=== PATIENT | male | born 1950 | race Caucasian/White ===

== ENCOUNTER 2016-07-06 13:08 | Inpatient (IN) ==
--- NOTE | 2016-07-06 13:23 | Emergency Department Note ---
Disposition Clinical Impression: Acute exacerbation of chronic obstructive airways disease Disposition: Home, Self-Care Condition: Fair Referrals: Chavez De Oliveira DO [Primary Care Provider] - Forms: ED Satisfaction Letter Time of Disposition: 15:39 (admit to [facility]?) SOB HPI - General Chief Complaint: ED Shortness of Breath/Dyspnea Stated Complaint: BETHANY Source: patient Mode of arrival: private vehicle Limitations: no limitations Nursing Notes Reviewed: Yes Vital Signs Reviewed: Yes - History of Present Illness Patient presents to the ED complaining of progressively worsening shortness of breath. States symptoms got particularly bad last night. Dyspnea is worse on exertion and he is only able to ambulate short distances at this time. He also complains of intermittent burning and pressure in his chest although he has no chest discomfort currently. Also complains of chest, back and abdominal discomfort with coughing episodes. He also complains of an intermittent "cold sensation" on the inside of his left chest. He has had a dry cough. Reports some slight leg swelling that is actually now improving after elevating his legs yesterday. He reports chills and a temperature of 100.1 yesterday. Denies any sick contacts or recent travel. He has a history of COPD and asthma as well as CHF and CAD with prior PA, CABG and stents. He states he has used 5 duo nebs since 7 AM this morning with last use 20 minutes prior to arrival. States these will help briefly but then symptoms worsen again. He is currently on 40 mg of prednisone daily, prescribed by [facility] on June 21. He also completed a Z-Daniele that was prescribed at that same visit. States he was supposed to have PFTs done today but he canceled the appointment due to not feeling well. He has home oxygen available that he is supposed to wear at 2.5 L as needed. States he has been wearing it for the past week with only minimal improvement. States his oxygen saturation was in the upper 80s at home this morning on room air. He used to smoke 2 packs per day for over 20 years but has only had 6 cigarettes since March. - Related Data Home Medications Medication Instructions Recorded Confirmed Budesonide/Formoterol 160/4.5 1 puff IH BIDR 12/07/14 03//16 [Symbicort] Ipratropium Neb [Atrovent Neb] 0.5 mg IH Q6HR PRN 12/07/14 05/23/15 Montelukast [Singulair] 10 mg PO HS 12/07/14 05/23/15 Atorvastatin Calcium [Lipitor] 80 mg PO DAILY 04/14/15 05/23/15 Previous Rx's Medication Instructions Recorded Albuterol Neb [Proventil Neb] 2.5 mg IH Q4HR #60 vial.neb 04/14/15 Albuterol Sulfate [Albuterol 2 puff IH Q4HR #1 hfa.aer.ad 04/14/15 Inhaler] PredniSONE 40 mg PO DAILY #10 tablet 06/22/15 PredniSONE 40 mg PO DAILY #10 tablet 07/18/15 PredniSONE 40 mg PO DAILY 5 Days 09/21/15 Levofloxacin [Levaquin] 500 mg PO DAILY #10 tablet 11/29/15 PredniSONE 20 mg PO DAILY #18 tablet 11/29/15 Allergies Allergy/AdvReac Type Severity Reaction Status Date / Time Peanuts Allergy Anaphylaxis Uncoded 04/14/15 16:46 Constitutional: Reports: fever, chills. Denies: weakness, weight change Eyes: Denies: eye pain, eye discharge, vision change ENT ED: Denies: ear pain, throat pain, dental pain, hearing loss, epistaxis, congestion, dysphagia Cardiovascular: Reports: as per HPI, chest pain, dyspnea on exertion, edema. Denies: palpitations, syncope Respiratory: Reports: as per HPI, cough, dyspnea, wheezes. Denies: hemoptysis, stridor, sputum production Gastrointestinal: Denies: abdominal pain, nausea, vomiting, diarrhea, constipation, hematemesis, melena, hematochezia Genitourinary: Denies: urgency, dysuria, frequency, hematuria Musculoskeletal: Denies: back pain, neck pain, arthralgia, myalgia Integumentary: Denies: rash, abrasion, lesions Neurological: Denies: headache, weakness, numbness, paresthesias, confusion, abnormal gait, vertigo Psychiatric: Denies: anxiety, depression, suicidal thoughts, homicidal thoughts , auditory hallucinations, visual hallucinations Endocrine: Denies: fatigue Hematological/Lymphatic: Denies: easy bleeding, easy bruising Allergic/Immunologic: Denies: facial swelling, urticaria Past Medical History - Past Medical History Medical history: Reports: arthritis, asthma, CHF, COPD, coronary artery disease , hyperlipidemia, hypertension, myocardial infarction Surgical history: Reports: angioplasty/stent, coronary bypass (CABG), herniorrhaphy ([facility]) Psychiatric history: Reports: no psych history, depression - Social History Smoking Status: Current some day smoker Smokeless Tobacco Status: No Alcohol use: Reports: occasionally Drug use: Reports: none Physical Exam - General Limitations: no limitations General appearance: alert, in no apparent distress - Head Head exam: atraumatic, normocephalic, normal inspection - Eye Eye exam: Present: normal appearance, PERRL, EOMI - ENT ENT exam: normal exam, normal oropharynx, mucous membranes moist - Neck Neck exam: Present: normal inspection, full ROM, trachea midline - Chest Chest inspection: Present: normal inspection, symmetric chest wall rise, tenderness (left side of chest wall) - Respiratory Respiratory exam: Present: normal lung sounds bilaterally, wheezes, accessory muscle use, prolonged expiratory phase. Absent: respiratory distress - Expanded Respiratory Exam Location: wheezes: Upper, Right, Left, rhonchi: Left, Right, Lower, decreased breath sounds: Lower, Upper, Right, Left - Cardiovascular Cardiovascular exam: Present: regular rate, normal rhythm, normal heart sounds - Abdominal Exam Abdominal exam: Present: soft, Non-Tender, normal bowel sounds. Absent: tenderness, distention, guarding, rebound, rigidity - Extremities Exam Extremities exam: Present: normal inspection, full ROM, pedal edema (trace bilaterally to lower calf). Absent: tenderness - Back Exam Back exam: Present: normal inspection, full ROM. Absent: tenderness - Neurological Exam Neurological exam: Present: alert, oriented X3 - Psychiatric Psychiatric exam: Present: normal affect, normal mood - Skin Skin exam: Present: warm, dry, intact, normal color Course Course Narrative: Reason presents to the ED with progressively worsening shortness of breath, wheezing and some mild lower extremity swelling with a history of advanced COPD , asthma and CHF. He has artery on steroids and recently completed antibiotics. Current presentation is concerning for persistent COPD exacerbation versus pneumonia or possible CHF exacerbation. Will provide oxygen , nebulizer treatments and IV steroids. Will obtain chest x-ray and lab work to evaluate further. I suspect patient will likely require admission for continued management. - Reevaluation(s) Reevaluation #1: X-ray shows no evidence of pneumonia. Laboratory studies show no leukocytosis. He is minimally elevated BNP. Troponin is slightly positive at 0.04 compared to a negative troponin last November. I suspect however this may simply represent a slight strain due to his severe COPD and current exacerbation versus a primary cardiac pathology. Repeat respiratory exam shows some improved aeration however there is still significant wheezing. He does warrant admission for continued management of his COPD exacerbation. Discussed all test results with the patient who expressed understanding and is in agreement with admission or transfer. Will contact the hospitalist on-call to discuss possible admission. Time: 15:36 Reevaluation #2: Still awaiting callback from hospitalist. Will collect a repeat troponin to establish a trend and help determine whether patient needs cardiology evaluation at this time. Time: 16:10 Reevaluation #3: I spoke to the hospitalist on-call, Dr. Hardy, who has accepted the patient given his repeat troponin is stable and not increasing. Time: 17:28 Vital Signs Temperature 98.9 F 07/06/16 13:11 Pulse Rate 86 07/06/16 13:11 Respiratory Rate 21 07/06/16 13:11 Blood Pressure 143/74 07/06/16 13:11 O2 Sat by Pulse Oximetry 87 07/06/16 13:11 Temperature 98.9 F 07/06/16 13:13 Pulse Rate 97 07/06/16 17:05 Respiratory Rate 18 07/06/16 17:05 Blood Pressure 149/94 07/06/16 17:05 O2 Sat by Pulse Oximetry 95 07/06/16 17:05 Oxygen Delivery Oxygen Delivery Nasal Cannula Shortness of Breath/Dyspnea - Differential Diagnosis Likely: acute exacerbation of chronic obstructive airways disease, congestive heart failure, pneumonia. Unlikely: pulmonary embolism, pneumothorax - Medical Records Medical records reviewed: Yes I reviewed the patient's medical records. - Lab Data Lab results reviewed: Yes I reviewed the patient's lab results. Result diagrams: 07/06/16 13:55 07/06/16 13:55 Lab Results 07/06/16 07/06/16 07/06/16 Range/Units 13:55 13:55 13:55 WBC 10.8 (4.3-11.1) K/mcL RBC 4.40 (4.19-5.50) M/mcL Hgb 13.9 (12.9-16.9) g/dL Hct 42.8 (37.5-50.1) % MCV 97.3 (83.0-100.0) fL MCH 31.6 (28.0-33.3) pg MCHC 32.5 (31.6-35.5) g/dL RDW 14.5 (11.5-14.5) % Plt Count 197 (140-400) K/mcL MPV 10.4 (9.4-12.4) fL Immature Gran % 0.8 (0-4) % Seg Neutrophils % 91.3 % Lymphocytes % 3.9 % Monocytes % 3.9 % Eosinophils % 0.0 % Basophils % 0.1 % Neutrophils # 9.9 H (1.6-8.9) K/mcL Lymphocytes # 0.4 L (0.6-4.6) K/mcL Monocytes # 0.4 (0.0-1.3) K/mcL Eosinophils # 0.0 (0.0-0.6) K/mcL Basophils # 0.0 (0.0-0.2) K/mcL Sodium 142 (136-145) mEq/L Potassium 4.7 H (3.5-4.5) mEq/L Chloride 100 (98-109) mEq/L Carbon Dioxide 32 H (19-29) mEq/L BUN 22 (8-26) mg/dL Creatinine 0.81 (0.72-1.25) mg/dL Est GFR ( Amer) > 60 (> 60) Est GFR (Non-Af Amer) > 60 (> 60) BUN/Creatinine Ratio 27 H (6-26) Glucose 133 H (70-99) mg/dL Calculated Osmolality 299 (280-300) Calcium 9.0 (8.6-10.8) mg/dL Troponin I 0.04 H* (0-0.03) ng/mL B-Natriuretic Peptide (0-100) pg/mL 07/06/16 07/06/16 Range/Units 13:55 16:18 WBC (4.3-11.1) K/mcL RBC (4.19-5.50) M/mcL Hgb (12.9-16.9) g/dL Hct (37.5-50.1) % MCV (83.0-100.0) fL MCH (28.0-33.3) pg MCHC (31.6-35.5) g/dL RDW (11.5-14.5) % Plt Count (140-400) K/mcL MPV (9.4-12.4) fL Immature Gran % (0-4) % Seg Neutrophils % % Lymphocytes % % Monocytes % % Eosinophils % % Basophils % % Neutrophils # (1.6-8.9) K/mcL Lymphocytes # (0.6-4.6) K/mcL Monocytes # (0.0-1.3) K/mcL Eosinophils # (0.0-0.6) K/mcL Basophils # (0.0-0.2) K/mcL Sodium (136-145) mEq/L Potassium (3.5-4.5) mEq/L Chloride (98-109) mEq/L Carbon Dioxide (19-29) mEq/L BUN (8-26) mg/dL Creatinine (0.72-1.25) mg/dL Est GFR ( Amer) (> 60) Est GFR (Non-Af Amer) (> 60) BUN/Creatinine Ratio (6-26) Glucose (70-99) mg/dL Calculated Osmolality (280-300) Calcium (8.6-10.8) mg/dL Troponin I 0.04 H* (0-0.03) ng/mL B-Natriuretic Peptide 186 H (0-100) pg/mL - Radiology Data Radiology results reviewed: Yes I reviewed the patient's radiology results. - EKG Data EKG attestation: Yes I reviewed and interpreted this EKG. EKG shows normal: Reports: sinus rhythm Rate: Reports: normal Rhythm: Reports: NSR, PVC's (occasional), PAC's (occasional) Interpretation: Reports: no acute changes, unchanged when compared to prior tracing (date) (11/29/15), nonspecific ST-T wave changes
[2016-07-06] MEDS ORDERED: Ipratropium/Albuterol Neb 3 ML IH ONE ×2 (13:39→13:40)
[2016-07-06 14:01] LABS: Basophils % 0.1 %; Hematocrit 42.8 % (37.5-50.1); Hemoglobin 13.9 g/dL (12.9-16.9); Immature Granulocytes % 0.8 % (0-4); Lymphocytes # 0.4 K/mcL (0.6-4.6); Lymphocytes % 3.9 %; Mean Corpuscular HGB Conc 32.5 g/dL (31.6-35.5); Mean Corpuscular Hemoglobin 31.6 pg (28.0-33.3); Mean Corpuscular Volume 97.3 fL (83.0-100.0); Mean Platelet Volume 10.4 fL (9.4-12.4); Monocytes # 0.4 K/mcL (0.0-1.3); Monocytes % 3.9 %; Neutrophils # 9.9 K/mcL (1.6-8.9); Platelet Count 197 K/mcL (140-400); Red Cell Distribution Width 14.5 % (11.5-14.5); Segmented Neutrophils % 91.3 %
[2016-07-06 14:18] LABS: BUN/Creatinine Ratio 27 (6-26); Blood Urea Nitrogen 22 mg/dL (8-26); Carbon Dioxide 32 mEq/L (19-29); Chloride 100 mEq/L (98-109); Glucose 133 mg/dL (70-99); Osmolality,Calculated 299 (280-300); Potassium 4.7 mEq/L (3.5-4.5); Sodium 142 mEq/L (136-145); eGFR For African Americans > 60 (> 60); eGFR For Non-African Americans > 60 (> 60)
[2016-07-06] MEDS ORDERED: Naloxone 0.4 MG/ML INJ IVP PRN ×2 (17:30→19:16)
--- NOTE | 2016-07-06 19:57 | Electrocardiograph Report ---
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
[2016-07-06] MEDS ORDERED: METHYLPREDNISOLONE IVPB SCH (20:15)
[2016-07-06] MEDS ORDERED: SODIUM CHLORIDE 0.9% IVPB SCH (20:15)
[2016-07-06] MEDS: Ipratropium/Albuterol Neb 3 ML IH SCH ×2 (20:27→23:36)
[2016-07-06] MEDS: Budesonide/Formoterol 160/4.5 MDI IH SCH (20:28)
[2016-07-07] MEDS: Ipratropium/Albuterol Neb 3 ML IH SCH ×2 (03:53→08:45)
[2016-07-07 04:53] LABS: Basophils % 0.1 %; Hematocrit 42.9 % (37.5-50.1); Hemoglobin 14.1 g/dL (12.9-16.9); Immature Granulocytes % 1.6 % (0-4); Lymphocytes # 0.4 K/mcL (0.6-4.6); Lymphocytes % 3.6 %; Mean Corpuscular HGB Conc 32.9 g/dL (31.6-35.5); Mean Corpuscular Hemoglobin 31.8 pg (28.0-33.3); Mean Corpuscular Volume 96.6 fL (83.0-100.0); Mean Platelet Volume 10.8 fL (9.4-12.4); Monocytes # 0.4 K/mcL (0.0-1.3); Monocytes % 3.8 %; Platelet Count 197 K/mcL (140-400); Red Blood Count 4.44 M/mcL (4.19-5.50); Red Cell Distribution Width 14.5 % (11.5-14.5); Segmented Neutrophils % 90.9 %
[2016-07-07 05:16] LABS: BUN/Creatinine Ratio 28 (6-26); Blood Urea Nitrogen 22 mg/dL (8-26); Calcium 9.3 mg/dL (8.6-10.8); Carbon Dioxide 30 mEq/L (19-29); Chloride 100 mEq/L (98-109); Glucose 135 mg/dL (70-99); Osmolality,Calculated 297 (280-300); Potassium 4.5 mEq/L (3.5-4.5); Sodium 141 mEq/L (136-145); eGFR For African Americans > 60 (> 60); eGFR For Non-African Americans > 60 (> 60)
[2016-07-07] MEDS: Budesonide/Formoterol 160/4.5 MDI IH SCH ×2 (11:08→21:23)
--- NOTE | 2016-07-07 12:15 | Internal Med History&Physical ---
Date of Encounter: 07/07/16 Time of Encounter: 11:40 Assessment and Plan (1) Dyspnea Current visit: Yes Status: Acute Suspect multifactorial etiology including severe COPD with possible superimposed infection and underlying heart failure. We will order chest CT and start metoprolol and isosorbide. Further workup will be done as needed. Qualifiers: Dyspnea type: unspecified Qualified Code(s): R06.00 - Dyspnea, unspecified (2) ASHD (arteriosclerotic heart disease) Current visit: Yes Status: Acute Will add isosorbide and metoprolol as mentioned (3) Hyperlipidemia Current visit: Yes Status: Acute Continue Lipitor. Qualifiers: Hyperlipidemia type: unspecified Qualified Code(s): E78.5 - Hyperlipidemia , unspecified (4) Hyperglycemia Current visit: Yes Status: Acute Blood sugar today was 135 (fasting). Hemoglobin A1c was 6.2% on 11/02/2014. We will recheck in a.m. (5) CHF (congestive heart failure) Current visit: Yes Status: Chronic Will add isosorbide, Bumex and metoprolol Qualifiers: Congestive heart failure type: combined Congestive heart failure chronicity : chronic Qualified Code(s): I50.42 - Chronic combined systolic (congestive) and diastolic (congestive) heart failure (6) Neutrophilia Current visit: Yes Status: Acute He has been started on Levaquin. Will continue this and add lactobacillus. Recheck labs in a.m. Internal Medicine - H&P: HPI Chief complaint: Dyspnea Admitted From: Home Plans for Post Hospital Care: Home History of present illness: Mr. Rizo is a 66 year old male who came to emergency room stating he had been scheduled for pulmonary function tests that day but felt too dyspneic to attempt them. He reports he has had increasing dyspnea over the past month with significant worsening the day of admission. He was referred from his PCP to [facility] dental financial coordinator who scheduled PFTs. He was given outpatient antibiotics including Z-Daniele, Levaquin, and oral steroids with minimal improvement. He was evaluated in emergency room and felt to have exacerbation of COPD. He was admitted to [facility] floor for ongoing care needs. His respiratory history is significant for having smoked since age 28 up to 2 packs per day. He reports pulmonary function tests approximately 2013 and was told he had COPD/emphysema and asthma. He has oxygen at home but uses it only when he feels he needs it. He has had a cough with minimal productivity for the past few weeks. He states his oxygen saturation the morning of admission was 86%. Last chest CT was February 2014. Past Med Surg Social Fam HX - Past Medical History Medical history: arthritis, asthma, CHF, COPD, coronary artery disease, hyperlipidemia, hypertension, myocardial infarction Psychiatric history: no psych history, depression - Past Surgical History Surgical History: angioplasty/stent, coronary bypass (CABG), herniorrhaphy - Social History Smoking Status: Current some day smoker Smokeless Tobacco Status: No Alcohol use: occasionally Drug use: none - Family History Mother History Unknown: Yes Adopted: [place]: [place] Age: 87 Internal Medicine - H&P: Meds Budesonide/Formoterol 160/4.5 [Symbicort] 1 puff IH BIDR 12/07/14 [History] Ipratropium Neb [Atrovent Neb] 0.5 mg IH Q6HR PRN 12/07/14 [History] Montelukast [Singulair] 10 mg PO HS 12/07/14 [History] Albuterol Neb [Proventil Neb] 2.5 mg IH Q4HR #60 vial.neb 04/14/15 [Rx] Albuterol Sulfate [Albuterol Inhaler] 2 puff IH Q4HR #1 hfa.aer.ad 04/14/15 [Rx] Atorvastatin Calcium [Lipitor] 80 mg PO DAILY 04/14/15 [History] PredniSONE 40 mg PO DAILY #10 tablet 06/22/15 [Rx] PredniSONE 40 mg PO DAILY #10 tablet 07/18/15 [Rx] PredniSONE 40 mg PO DAILY 5 Days 09/21/15 [Rx] Levofloxacin [Levaquin] 500 mg PO DAILY #10 tablet 11/29/15 [Rx] PredniSONE 20 mg PO DAILY #18 tablet 11/29/15 [Rx] Allergies Peanuts Allergy (Uncoded 04/14/15 16:46) Anaphylaxis All Systems PM: A 10-system review of systems was performed and is negative for pertinent findings except as documented above in the HPI. Review of systems: Gen.: He states his weight has been stable past few months Cardiovascular: He has a history of hypertension. He has known ASHD status post [place] 2009. He has had 3 coronary artery stents placed and states he had prior CABG surgery on 2 separate occasions with a total of 8 bypassed vessel sites. He states his last heart catheter was 2013. He has known ASPVD and has had an arterial stent placed in each leg. He has a diagnosis of heart failure with an echocardiogram done 02/24/2014 showing LVEF of 40-45% with mild diastolic dysfunction. There was LAE at 4.7 cm. E/A ratio was 0.7. He denies DVT or pulmonary embolus Respiratory: As per history of present illness GI: He denies disorders of his liver gallbladder or exocrine pancreas : He denies hematuria dysuria or kidney stones Neurologic: He claims he had a stroke in 2009 but there was no permanent neurologic deficits. He denies seizures Endocrine: He has hyperlipidemia but denies diabetes or thyroid disease Hematology/oncology: He denies blood disorders cancers or anemia Psychiatric: He has anxiety but denies depression or other mental health issues Musculoskeletal: He has DJD but denies gout or other bone joint or muscle disorders - Constitutional Vitals: Temp Pulse Resp BP Pulse Ox 97.8 F 67 16 134/75 97 07/07/16 11:06 07/07/16 11:06 07/07/16 11:06 07/07/16 11:06 07/07/16 11:06 Exam: Gen.: He is a well-developed well-nourished male who appears slightly dyspneic at rest HEENT: Head is atraumatic and normocephalic. Eyes: EOMI. There is no scleral icterus. Mouth: Mucosa is moist. Neck: Supple and nontender. There is no thyromegaly or adenopathy noted. Heart: Regular without murmurs gallops or ectopics Lungs: He has prolonged expiratory phase and mild diffuse wheezing. He has diminished breath sounds diffusely. Abdomen: Soft and nontender. Exam is limited because he is in the seated position. Extremities: He has trace - 1+ edema around the medial malleoli. Dorsalis pedis and posterior tibial pulses are trace palpable. He has minimal DJD changes of his hands. Neurologic: Mental status: He is talkative and a good historian. Cranial nerves : Smile is symmetric. Forehead wrinkles bilaterally. Tongue protrudes midline. EOMI. Motor: There is no pronator drift. Cerebellar: Finger to nose is intact bilaterally. Skin: Warm and dry Internal Med - H&P Results - Labs CBC & Chem 7: 07/07/16 04:15 07/07/16 04:15 Labs: Short CBC 07/07/16 Range/Units 04:15 WBC 11.0 (4.3-11.1) K/mcL Hgb 14.1 (12.9-16.9) g/dL Hct 42.9 (37.5-50.1) % Plt Count 197 (140-400) K/mcL Neutrophils # 10.0 H (1.6-8.9) K/mcL BMP 07/07/16 04:15 Sodium 141 Potassium 4.5 Chloride 100 Carbon Dioxide 30 H BUN 22 Creatinine 0.78 Glucose 135 H Calcium 9.3 - VTE Reasons for not Prescribing Prophylaxis: Treatment not Indicated - Low risk for VTE
[2016-07-07] MEDS: Lactobacillus 1 EACH CAP.SPRINK PO SCH ×2 (14:32→19:51)
[2016-07-07] MEDS: Bumetanide 1 MG TABLET PO SCH (14:32)
[2016-07-07] MEDS ORDERED: Albuterol 2.5 MG/3 ML NEBULIZER ONE (14:33)
[2016-07-07] MEDS: Isosorbide MONOnitrate (24 HR) 30 MG TAB.ER.24H PO SCH (14:34)
[2016-07-07] MEDS: Albuterol 2.5 MG/3 ML NEBULIZER IH PRN ×3 (14:36→21:23)
[2016-07-08 05:35] LABS: Basophils % 0.2 %; Hematocrit 38.5 % (37.5-50.1); Hemoglobin 12.5 g/dL (12.9-16.9); Immature Granulocytes % 1.4 % (0-4); Lymphocytes # 0.8 K/mcL (0.6-4.6); Lymphocytes % 6.2 %; Mean Corpuscular HGB Conc 32.5 g/dL (31.6-35.5); Mean Corpuscular Hemoglobin 31.6 pg (28.0-33.3); Mean Corpuscular Volume 97.5 fL (83.0-100.0); Mean Platelet Volume 10.8 fL (9.4-12.4); Monocytes % 8.6 %; Neutrophils # 10.1 K/mcL (1.6-8.9); Platelet Count 177 K/mcL (140-400); Red Blood Count 3.95 M/mcL (4.19-5.50); Red Cell Distribution Width 14.6 % (11.5-14.5); Segmented Neutrophils % 83.6 %
[2016-07-08 05:53] LABS: BUN/Creatinine Ratio 35 (6-26); Blood Urea Nitrogen 30 mg/dL (8-26); Calcium 8.7 mg/dL (8.6-10.8); Carbon Dioxide 33 mEq/L (19-29); Chloride 101 mEq/L (98-109); Glucose 128 mg/dL (70-99); Osmolality,Calculated 304 (280-300); Potassium 4.2 mEq/L (3.5-4.5); Sodium 143 mEq/L (136-145); eGFR For African Americans > 60 (> 60); eGFR For Non-African Americans > 60 (> 60)
[2016-07-08] MEDS: Albuterol 2.5 MG/3 ML NEBULIZER IH PRN ×4 (07:12→17:10)
[2016-07-08] MEDS: Budesonide/Formoterol 160/4.5 MDI IH SCH ×2 (07:16→21:17)
[2016-07-08] MEDS: Ipratropium/Albuterol Neb 3 ML IH SCH (08:06)
[2016-07-08] MEDS: Isosorbide MONOnitrate (24 HR) 30 MG TAB.ER.24H PO SCH (08:45)
[2016-07-08] MEDS: Bumetanide 1 MG TABLET PO SCH (08:45)
[2016-07-08] MEDS: Lactobacillus 1 EACH CAP.SPRINK PO SCH ×2 (08:45→21:37)
[2016-07-08 14:54] LABS: Hemoglobin A1C 5.7 %
[2016-07-08] MEDS ORDERED: Isosorbide MONOnitrate (24 HR) 30 MG TAB.ER.24H PO SCH (16:24)
--- NOTE | 2016-07-08 16:27 | Internal Med Progress Note ---
Date of Encounter: 07/08/16 Time of Encounter: 16:15 - Assessment and plan (1) Dyspnea Current Visit: Yes Status: Acute Assessment and plan: July 08. Will increase Symbicort to 2 puffs twice a day. Will increase isosorbide. We will add doxycycline and restart prednisone. Check labs in a.m. The CT showed bilateral bronchiolitis findings but no obvious masses or lymphadenopathy of concern. Qualifiers: Dyspnea type: unspecified Qualified Code(s): R06.00 - Dyspnea, unspecified (2) ASHD (arteriosclerotic heart disease) Current Visit: Yes Status: Acute Assessment and plan: July 08. We will increase isosorbide and continue metoprolol. (3) Hyperlipidemia Current Visit: Yes Status: Acute Assessment and plan: July 08. Continue Lipitor Qualifiers: Hyperlipidemia type: unspecified Qualified Code(s): E78.5 - Hyperlipidemia , unspecified (4) Hyperglycemia Current Visit: Yes Status: Acute Assessment and plan: July 08. Hemoglobin A1c was improved at 5.7%. (5) CHF (congestive heart failure) Current Visit: Yes Status: Chronic Assessment and plan: July 08. Continue Bumex, metoprolol, and higher dose isosorbide. Qualifiers: Congestive heart failure type: combined Congestive heart failure chronicity : chronic Qualified Code(s): I50.42 - Chronic combined systolic (congestive) and diastolic (congestive) heart failure (6) Neutrophilia Current Visit: Yes Status: Acute Assessment and plan: July 08. We will add doxycycline and continue Levaquin with lactobacillus. Recheck labs in a.m. - Subjective Interval history: July 08. He has no new complaints. He is still dyspneic. - Constitutional Vitals: Temp Pulse Resp BP Pulse Ox 98.3 F 67 18 157/83 96 07/08/16 16:21 07/08/16 16:21 07/08/16 16:21 07/08/16 16:21 07/08/16 16:21 Exam: He is lying in bed and appears dyspneic. His lungs show diminished air flow bilaterally with no significant wheezing heard. Heart is regular without murmurs gallops or ectopics. I reviewed his medications and lab results. I reviewed his telemetry strip showing A. fib with RVR paroxysm this morning. He has occasional PVCs. 12-lead EKG was done in the chief concierge hours.. Internal Medicine: Result - Labs CBC & Chem 7: 07/08/16 04:57 07/08/16 04:57 Labs: Short CBC 07/08/16 Range/Units 04:57 WBC 12.1 H (4.3-11.1) K/mcL Hgb 12.5 L D (12.9-16.9) g/dL Hct 38.5 (37.5-50.1) % Plt Count 177 (140-400) K/mcL Neutrophils # 10.1 H (1.6-8.9) K/mcL BMP 07/08/16 04:57 Sodium 143 Potassium 4.2 Chloride 101 Carbon Dioxide 33 H BUN 30 H Creatinine 0.85 Glucose 128 H Calcium 8.7 - Impressions Impressions Chest CT 07/07/16 12:32 IMPRESSION: 1. No acute findings within the chest. 2. Moderate emphysema. 3. Bilateral calcified pleural plaques may represent sequela of prior asbestos exposure. 4. Scattered tree-in-bud type micronodules are present bilaterally consistent with respiratory bronchiolitis. D/ / 07/07/2016 13:30:31 Felix Rivas MD / sue Interpreting Provider: Felix Rivas MD - VTE Reasons for not Prescribing Prophylaxis: Treatment not Indicated - Low risk for VTE Consult Discharge Plan - Plan Referrals: Chavez De Oliveira DO [Primary Care Provider] - 1 week
[2016-07-08] MEDS: Tiotropium 18 MCG inhalation IH SCH (17:10)
[2016-07-08] MEDS: PredniSONE 20 MG TABLET PO SCH (17:11)
[2016-07-08] MEDS: Doxycycline 100 MG CAPSULE PO SCH (21:35)
[2016-07-09 06:39] LABS: Basophils % 0.2 %; Hematocrit 40.6 % (37.5-50.1); Hemoglobin 13.1 g/dL (12.9-16.9); Lymphocytes # 0.6 K/mcL (0.6-4.6); Lymphocytes % 7.2 %; Mean Corpuscular HGB Conc 32.3 g/dL (31.6-35.5); Mean Corpuscular Hemoglobin 31.3 pg (28.0-33.3); Mean Corpuscular Volume 97.1 fL (83.0-100.0); Mean Platelet Volume 9.8 fL (9.4-12.4); Monocytes # 0.7 K/mcL (0.0-1.3); Neutrophils # 7.4 K/mcL (1.6-8.9); Platelet Count 168 K/mcL (140-400); Red Blood Count 4.18 M/mcL (4.19-5.50); Red Cell Distribution Width 14.5 % (11.5-14.5); Segmented Neutrophils % 83.6 %
[2016-07-09 06:55] LABS: BUN/Creatinine Ratio 28 (6-26); Blood Urea Nitrogen 21 mg/dL (8-26); Calcium 8.3 mg/dL (8.6-10.8); Carbon Dioxide 34 mEq/L (19-29); Chloride 100 mEq/L (98-109); Glucose 90 mg/dL (70-99); Osmolality,Calculated 299 (280-300); Potassium 4.4 mEq/L (3.5-4.5); Sodium 143 mEq/L (136-145); eGFR For African Americans > 60 (> 60); eGFR For Non-African Americans > 60 (> 60)
[2016-07-09 07:42] VITALS: BP 135/86
[2016-07-09] MEDS: Albuterol 2.5 MG/3 ML NEBULIZER IH PRN (07:48)
[2016-07-09] MEDS: Tiotropium 18 MCG inhalation IH SCH (07:50)
[2016-07-09] MEDS: Budesonide/Formoterol 160/4.5 MDI IH SCH (07:52)
[2016-07-09] MEDS: Bumetanide 1 MG TABLET PO SCH (09:33)
[2016-07-09] MEDS: PredniSONE 20 MG TABLET PO SCH (09:33)
[2016-07-09] MEDS: Doxycycline 100 MG CAPSULE PO SCH (09:34)
[2016-07-09] MEDS: Lactobacillus 1 EACH CAP.SPRINK PO SCH (09:34)
--- NOTE | 2016-07-09 10:04 | Discharge Summary ---
Date of Encounter: 07/09/16 Time of Encounter: 09:45 - Discharge Diagnosis (1) Dyspnea Priority: Primary Status: Acute Qualifiers: Dyspnea type: unspecified Qualified Code(s): R06.00 - Dyspnea, unspecified (2) ASHD (arteriosclerotic heart disease) Priority: Secondary Status: Acute (3) Hyperlipidemia Priority: Secondary Status: Acute Qualifiers: Hyperlipidemia type: unspecified Qualified Code(s): E78.5 - Hyperlipidemia , unspecified (4) Hyperglycemia Priority: Secondary Status: Acute (5) CHF (congestive heart failure) Priority: Secondary Status: Chronic Qualifiers: Congestive heart failure type: combined Congestive heart failure chronicity : chronic Qualified Code(s): I50.42 - Chronic combined systolic (congestive) and diastolic (congestive) heart failure (6) Neutrophilia Priority: Secondary Status: Acute - Discharge Medications Prescriptions: Budesonide/Formoterol 160/4.5 [Symbicort 160/4.5] 2 puff IH BIDR #1 inhaler Bumetanide [Bumex] 0.5 mg PO DAILY #15 tablet Doxycycline 100 mg PO BID #6 capsule Isosorbide MONOnitrate (24 HR) [Imdur] 60 mg PO DAILY #30 tab.er.24h Lactobacillus [Culturelle] 1 each PO BID #6 cap.sprink Levofloxacin [Levaquin] 500 mg PO DAILY #3 tablet Metoprolol XL (24 HR) Succ [Toprol XL] 25 mg PO DAILY #30 tab.er.24h PredniSONE 20 mg PO BIDWM #6 tablet Home Medications: Ipratropium Neb [Atrovent Neb] 0.5 mg IH Q6HR PRN 12/07/14 [History] Montelukast [Singulair] 10 mg PO HS 12/07/14 [History] Albuterol Neb [Proventil Neb] 2.5 mg IH Q4HR #60 vial.neb 04/14/15 [Rx] Albuterol Sulfate [Albuterol Inhaler] 2 puff IH Q4HR #1 hfa.aer.ad 04/14/15 [Rx] Atorvastatin Calcium [Lipitor] 80 mg PO DAILY 04/14/15 [History] Budesonide/Formoterol 160/4.5 [Symbicort 160/4.5] 2 puff IH BIDR #1 inhaler [Rx] Bumetanide [Bumex] 0.5 mg PO DAILY #15 tablet 07/09/16 [Rx] Doxycycline 100 mg PO BID #6 capsule 07/09/16 [Rx] Isosorbide MONOnitrate (24 HR) [Imdur] 60 mg PO DAILY #30 tab.er.24h 07/09/16 [ Rx] Lactobacillus [Culturelle] 1 each PO BID #6 cap.sprink 07/09/16 [Rx] Levofloxacin [Levaquin] 500 mg PO DAILY #3 tablet 07/09/16 [Rx] Metoprolol XL (24 HR) Succ [Toprol XL] 25 mg PO DAILY #30 tab.er.24h 07/09/16 [ Rx] PredniSONE 20 mg PO BIDWM #6 tablet 07/09/16 [Rx] Allergies/Adverse Reactions: Allergies Peanuts Allergy (Uncoded 04/14/15 16:46) Anaphylaxis Date of admission: 07/08/16 16:21 Primary care physician: Chavez De Oliveira DO - Patient Status Disposition: Home, Self-Care Condition: Fair Functional capacity at discharge: independent ambulation Overall status at discharge: patient is progressing back to baseline - Discharge Instructions Follow Up With: Chavez De Oliveira DO [Primary Care Provider] - 1 week - Diet and Activity Activity: resume usual activities as tolerated, wear oxygen at all times Diet: advance to your usual diet Hospital course: Mr. Rizo is a 66 year old male who came to emergency room stating he had been scheduled for pulmonary function tests that day but felt too dyspneic to attempt them. He reports he has had increasing dyspnea over the past month with significant worsening the day of admission. He was referred from his PCP to [facility] marketing associate who scheduled PFTs. He was given outpatient antibiotics including Z-Daniele, Levaquin, and oral steroids with minimal improvement. He was evaluated in emergency room and felt to have exacerbation of COPD. He was admitted to [facility] floor for ongoing care needs. Initial orders were written by the emergency room physician. I saw him on July 07 and performed the history and physical. He was started on Levaquin by the emergency room physician. I added doxycycline on July 08. His WBC normalized to 8.9 on the day of discharge with 83.6% segs. He will continue with antibiotics and probiotics for 3 additional days at discharge. He was given low-dose Bumex 0.5 mg daily. Isosorbide dose was increased. His dyspnea improved and BNP peptide normalized to 97 on July 08. Hemoglobin A1c was satisfactory at 5.7%. When I saw him on July 09 he felt stable for discharge home. He will follow with his PCP Dr. De Oliveira within 1 week. Will continue oxygen use and nebulizers as at home. - Time Spent with Patient Total time spent providing and/or coordinating discharge services: - Constitutional Vitals: Temp Pulse Resp BP Pulse Ox 97.3 F L 60 16 135/86 97 07/09/16 07:39 07/09/16 07:39 07/09/16 07:53 07/09/16 07:39 07/09/16 07:53 - VTE Reasons for not Prescribing Prophylaxis: Treatment not Indicated - Low risk for VTE
--- NOTE | 2016-07-09 17:47 | Electrocardiograph Report ---
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
== END 2016-07-09 11:43 | disposition home or self-care (01) | DRG 191 ==
LOC: EMEROOPIK 13:08 → INPPIK 13:08
PROVIDERS: ADMIT Internal Medicine; ATTEND Internal Medicine

== ENCOUNTER 2017-03-14 19:39 | Observation (INO) ==
--- NOTE | 2017-03-14 20:28 | Emergency Department Note ---
Disposition Clinical Impression: COPD (chronic obstructive pulmonary disease), Bronchial pneumonia Disposition: Admitted As Inpatient Condition: Good Referrals: Chavez De Oliveira DO [Primary Care Provider] - Forms: ED Satisfaction Letter Time of Disposition: 22:05 ([facility]) URI/Sore Throat HPI - General Chief Complaint: ED Upper Respiratory Infection Stated Complaint: cough sleepy Time Seen by Provider: 03/14/17 20:25 Source: patient Mode of arrival: ambulatory Limitations: no limitations Nursing Notes Reviewed: Yes Vital Signs Reviewed: Yes - History of Present Illness HPI Narrative: Fever chills cough congestion sleepy patient states is having increasing respiratory drive bringing up some thick phlegm states that his had no apnea and cyanosis denies any diarrhea denies any blurred vision double vision states that he has not been sick around anybody that he knows been sick states symptoms been going on for about 2 days denies any rashes or lesions denies any abdominal pain or discomfort Pt Subjective Complaint: fever, cough, nasal congestion Onset (ago): day(s) (2-3) Duration: constant, gradually worsening Severity: moderate Severity scale (1-10): 4 Improves with: nothing Worsens with: nothing If sputum, description: watery, yellow Associated symptoms: Reports: fever, chills, myalgias, nasal congestion, cough, shortness of breath. Denies: voice changes, diaphoresis, headache, sore throat , stiff neck, chest pain, abdominal pain, nausea, vomiting, diarrhea, dysuria, rash, ear pain Treatments prior to arrival: acetaminophen, ibuprofen - Related Data Home Medications Medication Instructions Recorded Confirmed Montelukast [Singulair] 10 mg PO HS 12/07/14 03/14/17 Budesonide/Formoterol 160/4.5 2 puff IH BID 09/16/16 03/14/17 [Symbicort 160/4.5] Ipratropium/Albuterol Neb [Duoneb] 3 ml IH Q6HR 09/16/16 03/14/17 Mometasone Furoate [Nasonex] 17 gm NS DAILY 09/16/16 03/14/17 Roflumilast [Daliresp] 500 mcg PO DAILY 09/16/16 03/14/17 Albuterol Sulfate [Proair 90 mcg IH DAILY 10/27/16 03/14/17 Respiclick] Atorvastatin [Lipitor] 40 mg PO HS 10/27/16 03/14/17 Nitroglycerin [Nitrostat] 0.4 mg SL DAILY PRN 10/27/16 10/27/16 Clopidogrel [Plavix] 03/14/17 Isosorbide MONOnitrate (24 HR) 30 mg PO DAILY 03/14/17 03/14/17 [Imdur] Previous Rx's Medication Instructions Recorded Lisinopril 2.5 mg PO DAILY #30 tablet 09/22/16 Metoprolol XL (24 HR) Succ [Toprol 50 mg PO DAILY #30 tab.er.24h 10/27/16 Xl] Ranolazine [Ranexa] 500 mg PO BID #60 tab.er.12h 10/27/16 Allergies Allergy/AdvReac Type Severity Reaction Status Date / Time Peanuts Allergy Anaphylaxis Uncoded 03/14/17 19:59 All systems ED: reviewed and negative except as stated. Review of Systems: As Per HPI Constitutional: Reports: fever, chills, weakness Eyes: Denies: eye pain, eye discharge ENT ED: Reports: congestion. Denies: throat pain Cardiovascular: Reports: dyspnea on exertion. Denies: chest pain, palpitations Respiratory: Reports: cough, dyspnea, wheezes, sputum production Gastrointestinal: Denies: abdominal pain, nausea, vomiting Genitourinary: Denies: urgency, dysuria, frequency Musculoskeletal: Denies: back pain, neck pain Integumentary: Denies: rash, abrasion Neurological: Denies: headache, weakness Psychiatric: Denies: depression Endocrine: Denies: fatigue Hematological/Lymphatic: Denies: easy bleeding Allergic/Immunologic: Denies: facial swelling URI PMH - Past Medical History Medical history: Reports: arthritis, asthma, CHF, COPD, coronary artery disease , CVA, hyperlipidemia, hypertension, myocardial infarction Surgical history: Reports: angioplasty/stent, coronary bypass (CABG), herniorrhaphy Psychiatric history: Reports: depression - Social History Smoking Status: Former smoker Alcohol use: Reports: occasionally Drug use: Reports: none Physical Exam - General Limitations: no limitations General appearance: alert, in no apparent distress, anxious - Head Head exam: atraumatic, normocephalic, normal inspection - Eye Eye exam: Present: normal appearance, PERRL, EOMI - ENT ENT exam: normal exam, normal oropharynx, mucous membranes moist, TM's normal bilaterally, normal external ear exam - Neck Neck exam: Present: normal inspection, full ROM, trachea midline - Chest Chest inspection: Present: normal inspection, symmetric chest wall rise - Respiratory Respiratory exam: Present: normal lung sounds bilaterally, wheezes (rhonci), prolonged expiratory phase - Cardiovascular Cardiovascular exam: Present: regular rate, normal rhythm, normal heart sounds - Abdominal Exam Abdominal exam: Present: soft, Non-Tender, normal bowel sounds. Absent: mass, pulsatile mass - Extremities Exam Extremities exam: Present: normal inspection, full ROM, normal capillary refill. Absent: tenderness, pedal edema, joint swelling, calf tenderness - Expanded Lower Extremity Exam Neurovascular/Tendon exam: Present: normal capillary refill, normal fine/light touch Gait: observed and normal - Back Exam Back exam: Present: normal inspection, full ROM. Absent: muscle spasm - Neurological Exam Neurological exam: Present: alert, oriented X3, CN II-XII intact, normal gait - Psychiatric Psychiatric exam: Present: normal affect, normal mood - Skin Skin exam: Present: warm, dry, intact, normal color Course Course Narrative: Patient seen examined she has a persistent intermittent sporadic cough which he also has rhonchi which clear very little with aerosol treatment though he does not desaturate he still appears to be in some mild respiratory discomfort as result patient be admitted services Dr. Hardy due to his history is underlying COPD Vital Signs Temperature 99.5 F 03/14/17 19:41 Pulse Rate 85 03/14/17 19:41 Respiratory Rate 16 03/14/17 19:41 Blood Pressure 103/60 03/14/17 19:41 O2 Sat by Pulse Oximetry 100 03/14/17 19:41 Temperature 99.5 F 03/14/17 19:41 Pulse Rate 85 03/14/17 19:41 Respiratory Rate 16 03/14/17 19:41 Blood Pressure 103/60 03/14/17 19:41 O2 Sat by Pulse Oximetry 100 03/14/17 19:41 Oxygen Delivery Oxygen Delivery Nasal Cannula Upper Respiratory Infection - Differential Diagnosis Differential Diagnosis: Likely: upper respiratory infection, sinusitis, other viral infection, bronchitis, influenza, pneumonia - Medical Records Medical records reviewed: Yes I reviewed the patient's medical records. - Lab Data Lab results reviewed: Yes I reviewed the patient's lab results. Result diagrams: 03/14/17 21:09 03/14/17 21:09 Lab Results 03/14/17 03/14/17 03/14/17 Range/Units 21:09 21:09 21:09 WBC 5.6 (4.3-11.1) K/mcL RBC 4.46 (4.19-5.50) M/mcL Hgb 13.8 (12.9-16.9) g/dL Hct 41.3 (37.5-50.1) % MCV 92.6 (83.0-100.0) fL MCH 30.9 (28.0-33.3) pg MCHC 33.4 (31.6-35.5) g/dL RDW 14.5 (11.5-14.5) % Plt Count 228 (140-400) K/mcL MPV 10.2 (9.4-12.4) fL Immature Gran % 0.5 (0-4) % Seg Neutrophils % 69.5 % Lymphocytes % 17.0 % Monocytes % 11.1 % Eosinophils % 1.4 % Basophils % 0.5 % Neutrophils # 3.9 (1.6-8.9) K/mcL Lymphocytes # 1.0 (0.6-4.6) K/mcL Monocytes # 0.6 (0.0-1.3) K/mcL Eosinophils # 0.1 (0.0-0.6) K/mcL Basophils # 0.0 (0.0-0.2) K/mcL PT (9.4-12.1) Seconds INR APTT 30.2 (26.0-36.0) Seconds Sodium 136 (136-145) mEq/L Potassium 5.1 H (3.5-4.5) mEq/L Chloride 98 (98-109) mEq/L Carbon Dioxide 27 (19-29) mEq/L BUN 23 (8-26) mg/dL Creatinine 1.15 (0.72-1.25) mg/dL Est GFR ( Amer) > 60 (> 60) Est GFR (Non-Af Amer) > 60 (> 60) BUN/Creatinine Ratio 20 (6-26) Glucose 82 (70-99) mg/dL Calculated Osmolality 285 (280-300) Lactic Acid (0.5-2.2) mmol/L Calcium 9.1 (8.6-10.8) mg/dL Total Bilirubin 0.3 (0.2-1.2) mg/dL AST 22 (5-34) Units/L ALT 13 (0-55) Units/L Alkaline Phosphatase 90 (38-126) Units/L Serum Total Protein 6.9 (6.0-8.3) g/dL Albumin 3.4 L (3.5-5.0) g/dL Globulin 3.5 (2.4-3.5) g/dL Albumin/Globulin Ratio 1.0 L (1.1-2.2) 03/14/17 03/14/17 Range/Units 21:09 21:09 WBC (4.3-11.1) K/mcL RBC (4.19-5.50) M/mcL Hgb (12.9-16.9) g/dL Hct (37.5-50.1) % MCV (83.0-100.0) fL MCH (28.0-33.3) pg MCHC (31.6-35.5) g/dL RDW (11.5-14.5) % Plt Count (140-400) K/mcL MPV (9.4-12.4) fL Immature Gran % (0-4) % Seg Neutrophils % % Lymphocytes % % Monocytes % % Eosinophils % % Basophils % % Neutrophils # (1.6-8.9) K/mcL Lymphocytes # (0.6-4.6) K/mcL Monocytes # (0.0-1.3) K/mcL Eosinophils # (0.0-0.6) K/mcL Basophils # (0.0-0.2) K/mcL PT 13.2 H (9.4-12.1) Seconds INR 1.2 APTT (26.0-36.0) Seconds Sodium (136-145) mEq/L Potassium (3.5-4.5) mEq/L Chloride (98-109) mEq/L Carbon Dioxide (19-29) mEq/L BUN (8-26) mg/dL Creatinine (0.72-1.25) mg/dL Est GFR ( Amer) (> 60) Est GFR (Non-Af Amer) (> 60) BUN/Creatinine Ratio (6-26) Glucose (70-99) mg/dL Calculated Osmolality (280-300) Lactic Acid 1.8 (0.5-2.2) mmol/L Calcium (8.6-10.8) mg/dL Total Bilirubin (0.2-1.2) mg/dL AST (5-34) Units/L ALT (0-55) Units/L Alkaline Phosphatase (38-126) Units/L Serum Total Protein (6.0-8.3) g/dL Albumin (3.5-5.0) g/dL Globulin (2.4-3.5) g/dL Albumin/Globulin Ratio (1.1-2.2) - Radiology Data Radiology results reviewed: Yes I reviewed the patient's radiology results. ITS Impressions Chest X-Ray 03/14/17 20:26 IMPRESSION: 1. Suggestion of bronchial wall thickening, raising the possibility of bronchitis or reactive airways disease. 2. No acute focal infiltrate is identified. D/ / Roger Arnold MD / Roger Arnold MD Interpreting Provider: Roger Arnold MD Critical Care Time Critical Care Time: No
[2017-03-14 21:22] LABS: Basophils % 0.5 %; Eosinophils # 0.1 K/mcL (0.0-0.6); Eosinophils % 1.4 %; Hematocrit 41.3 % (37.5-50.1); Hemoglobin 13.8 g/dL (12.9-16.9); Immature Granulocytes % 0.5 % (0-4); Mean Corpuscular HGB Conc 33.4 g/dL (31.6-35.5); Mean Corpuscular Hemoglobin 30.9 pg (28.0-33.3); Mean Corpuscular Volume 92.6 fL (83.0-100.0); Mean Platelet Volume 10.2 fL (9.4-12.4); Monocytes # 0.6 K/mcL (0.0-1.3); Monocytes % 11.1 %; Neutrophils # 3.9 K/mcL (1.6-8.9); Platelet Count 228 K/mcL (140-400); Red Blood Count 4.46 M/mcL (4.19-5.50); Red Cell Distribution Width 14.5 % (11.5-14.5); Segmented Neutrophils % 69.5 %
[2017-03-14 21:28] LABS: INR 1.2; Prothrombin Time 13.2 Seconds (9.4-12.1)
[2017-03-14] MEDS ORDERED: methylPREDNISolone 125 MG/2 ML VIAL IVP ONE (21:35)
[2017-03-14] MEDS ORDERED: Azithromycin 500 MG in D5% in Water 250 ML IVPB ONE ×2 (21:35→23:01)
[2017-03-14] MEDS ORDERED: Ipratropium/Albuterol Neb 3 ML IH ONE (21:35)
[2017-03-14 21:40] LABS: Alanine Aminotransferase 13 Units/L (0-55); Albumin 3.4 g/dL (3.5-5.0); Alkaline Phosphatase 90 Units/L (38-126); Aspartate Amino Transferase 22 Units/L (5-34); BUN/Creatinine Ratio 20 (6-26); Bilirubin,Total 0.3 mg/dL (0.2-1.2); Blood Urea Nitrogen 23 mg/dL (8-26); Calcium 9.1 mg/dL (8.6-10.8); Carbon Dioxide 27 mEq/L (19-29); Chloride 98 mEq/L (98-109); Globulin 3.5 g/dL (2.4-3.5); Glucose 82 mg/dL (70-99); Osmolality,Calculated 285 (280-300); Potassium 5.1 mEq/L (3.5-4.5); Sodium 136 mEq/L (136-145); Total Protein 6.9 g/dL (6.0-8.3); eGFR For African Americans > 60 (> 60); eGFR For Non-African Americans > 60 (> 60)
[2017-03-14] MEDS ORDERED: Naloxone 0.4 MG/ML INJ IVP PRN (23:01)
[2017-03-14] MEDS ORDERED: Ibuprofen 400 MG TABLET PO PRN (23:01)
[2017-03-14] MEDS ORDERED: Ondansetron 4 MG/2 ML VIAL IVP PRN (23:01)
[2017-03-14] MEDS: 0.9 % Sodium Chloride 1,000 ML IVC SCH (23:30)
[2017-03-15] MEDS: Ipratropium/Albuterol Neb 3 ML IH SCH ×2 (04:00→09:27)
[2017-03-15 06:08] LABS: Basophils % 0.3 %; Hematocrit 39.5 % (37.5-50.1); Immature Granulocytes % 0.3 % (0-4); Lymphocytes # 0.4 K/mcL (0.6-4.6); Lymphocytes % 11.5 %; Mean Corpuscular HGB Conc 32.9 g/dL (31.6-35.5); Mean Corpuscular Hemoglobin 30.2 pg (28.0-33.3); Mean Corpuscular Volume 91.9 fL (83.0-100.0); Mean Platelet Volume 10.5 fL (9.4-12.4); Monocytes # 0.1 K/mcL (0.0-1.3); Monocytes % 2.1 %; Neutrophils # 3.3 K/mcL (1.6-8.9); Platelet Count 213 K/mcL (140-400); Red Cell Distribution Width 14.5 % (11.5-14.5); Segmented Neutrophils % 85.8 %
[2017-03-15 06:20] LABS: INR 1.2; Prothrombin Time 12.9 Seconds (9.4-12.1)
[2017-03-15 06:22] LABS: Activated Partial Thrombo Time 31.5 Seconds (26.0-36.0)
[2017-03-15 06:30] LABS: BUN/Creatinine Ratio 26 (6-26); Blood Urea Nitrogen 28 mg/dL (8-26); Calcium 8.7 mg/dL (8.6-10.8); Carbon Dioxide 25 mEq/L (19-29); Chloride 99 mEq/L (98-109); Glucose 149 mg/dL (70-99); Osmolality,Calculated 288 (280-300); Potassium 4.6 mEq/L (3.5-4.5); Sodium 135 mEq/L (136-145); eGFR For African Americans > 60 (> 60); eGFR For Non-African Americans > 60 (> 60)
[2017-03-15 07:19] LABS: Platelet Estimate Normal (Normal)
[2017-03-15] MEDS: Isosorbide MONOnitrate (24 HR) 30 MG TAB.ER.24H PO SCH (09:26)
[2017-03-15] MEDS: Metoprolol XL (24 HR) Succ 50 MG TAB.ER.24H PO SCH (09:26)
[2017-03-15] MEDS: Ranolazine 500 MG TAB.ER.12H PO SCH ×2 (09:26→21:47)
[2017-03-15] MEDS: Budesonide/Formoterol 160/4.5 MDI IH SCH ×3 (09:28→21:37)
[2017-03-15] MEDS: Acetaminophen 325 MG TABLET PO PRN ×2 (09:30→15:36)
[2017-03-15] MEDS: DALIRESP 500 MCG PO SCH (11:28)
[2017-03-15] MEDS: 0.9 % Sodium Chloride 1,000 ML IVC SCH (11:51)
[2017-03-15] MEDS: Fluticasone Propionate Nasal 50 MCG/SPRAY BOTTLE NS SCH (11:52)
--- NOTE | 2017-03-15 15:28 | Internal Med History&Physical ---
Date of Encounter: 03/15/17 Time of Encounter: 15:00 Assessment and Plan (1) Acute exacerbation of chronic obstructive airways disease Current visit: No Status: Acute He has been started on duo nebs with Rocephin and Zithromax. Will continue Symbicort, Flonase, and Singulair. (2) ASHD (arteriosclerotic heart disease) Current visit: No Status: Acute Continue Toprol, Imdur, and Ranexa (3) HTN (hypertension) Current visit: No Status: Chronic Continue Toprol and lisinopril Qualifiers: Hypertension type: essential hypertension Qualified Code(s): I10 - Essential (primary) hypertension Internal Medicine - H&P: HPI Chief complaint: Cough and dyspnea Admitted From: Emergency Dept Plans for Post Hospital Care: Home History of present illness: Mr. Rizo is a 66 year old male who came to the emergency room stating he had increase in cough with dyspnea onset March 12. He reports the cough is productive of brown mucus. He denies hemoptysis. Reports running a low-grade fever at home. Evaluated emergency room and felt to have exacerbation of COPD and was admitted to [facility] floor for ongoing care needs. He was hospitalized last at [facility] June 2016 with dyspnea. He was hospitalized at [facility] September 2016 with pneumonia. His respiratory history is significant for having smoked from age [age] up to 2 packs per day. He reports pulmonary function tests approximately 2014 and was told he had COPD/emphysema and asthma. He has oxygen at home but uses it only when he feels he needs it. He states his breathing has improved since admission but he does not feel back to his baseline and able to be discharged home. Past Med Surg Social Fam HX - Past Medical History Medical history: arthritis, asthma, CHF, COPD, coronary artery disease, CVA, hyperlipidemia, hypertension, myocardial infarction Psychiatric history: no psych history - Past Surgical History Surgical History: angioplasty/stent, coronary bypass (CABG), herniorrhaphy - Social History Smoking Status: Former smoker Smokeless Tobacco Status: No Alcohol use: rarely Drug use: none - Family History Mother Adopted: No Internal Medicine - H&P: Meds Montelukast [Singulair] 10 mg PO HS 12/07/14 [History] Budesonide/Formoterol 160/4.5 [Symbicort 160/4.5] 2 puff IH BID 09/16/16 [ History] Ipratropium/Albuterol Neb [Duoneb] 3 ml IH Q6HR 09/16/16 [History] Mometasone Furoate [Nasonex] 17 gm NS DAILY 09/16/16 [History] Roflumilast [Daliresp] 500 mcg PO DAILY 09/16/16 [History] Lisinopril 2.5 mg PO DAILY #30 tablet 09/22/16 [Rx] Albuterol Sulfate [Proair Respiclick] 90 mcg IH DAILY 10/27/16 [History] Atorvastatin [Lipitor] 40 mg PO HS 10/27/16 [History] Metoprolol XL (24 HR) Succ [Toprol Xl] 50 mg PO DAILY #30 tab.er.24h 10/27/16 [ Rx] Nitroglycerin [Nitrostat] 0.4 mg SL DAILY PRN 10/27/16 [History] Ranolazine [Ranexa] 500 mg PO BID #60 tab.er.12h 10/27/16 [Rx] Clopidogrel [Plavix] 03/14/17 [History] Isosorbide MONOnitrate (24 HR) [Imdur] 30 mg PO DAILY 03/14/17 [History] 3 Allergy/AdvReac Type Severity Reaction Status Date / Time Peanuts Allergy Anaphylaxis Uncoded 03/14/17 19:59 All Systems PM: A 10-system review of systems was performed and is negative for pertinent findings except as documented above in the HPI. Review of systems: Review of systems from his June 2016 [facility] hospitalization were reviewed and revised as below Gen.: He states his weight has been stable past few months Cardiovascular: He has a history of hypertension. He has known ASHD status post [place] 2009. He has had CABG surgery on 2 separate occasions with a total of 8 bypassed vessel sites. He has a total of 5 coronary stents with the 2 most recent stents being placed January 2017 at [place]. He has known ASPVD and has had an arterial stent placed in each leg several years ago. He has a diagnosis of heart failure with an echocardiogram done 03/07/2017 which showed LVEF of 35% . There was left ventricular enlargement with end-diastolic diameter of 6.01 cm. There was increased thickness of interventricular septum 1.32 cm. Posterior wall thickness was normal at 0.82 cm. There was slight LAE at 4.20 cm. The E/A ratio was 0.8 consistent with mild diastolic dysfunction. He had [id number] mitral regurgitation and mild pulmonic regurgitation. He denies DVT or pulmonary embolus Respiratory: As per history of present illness GI: He denies disorders of his liver gallbladder or exocrine pancreas : He denies hematuria dysuria or kidney stones Neurologic: He claims he had a stroke in 2010 but there was no permanent neurologic deficits. He denies seizures. Endocrine: He has hyperlipidemia but denies diabetes or thyroid disease Hematology/oncology: He denies blood disorders cancers or anemia Psychiatric: He has anxiety but denies depression or other mental health issues Musculoskeletal: He has DJD but denies gout or other bone joint or muscle disorders - Constitutional Vitals: Temp Pulse Resp BP Pulse Ox 98.2 F 68 18 112/62 95 03/15/17 12:39 03/15/17 12:39 03/15/17 12:39 03/15/17 12:39 03/15/17 12:39 Exam: Gen.: He is a well-developed well-nourished male resting comfortably in bed who appears in no severe distress HEENT: Head is atraumatic and normocephalic. Eyes: EOMI. Is no scleral icterus. Mouth: Mucosa is moist. Neck: Supple and nontender. There is no thyromegaly or adenopathy noted. Heart: Regular without murmurs gallops or ectopics Lungs: No wheezes or crackles are heard. He has diminished breath sounds diffusely. Abdomen: Soft and nontender. No masses or guarding are noted. Extremities: There is no cyanosis edema or clubbing noted. Dorsalis pedis and posttibial pulses are trace palpable bilaterally. Neurologic: Mental status: He is talkative and a good historian. Cranial nerves : Smile is symmetric. Forehead wrinkles bilaterally. Tongue protrudes midline. EOMI. Motor: There is no pronator drift. Cerebellar: Finger to nose is intact bilaterally. Skin: Warm and dry Internal Med - H&P Results - Labs CBC & Chem 7: 03/15/17 04:07 03/15/17 04:07 Labs: Short CBC 03/15/17 Range/Units 04:07 WBC 3.8 L (4.3-11.1) K/mcL Hgb 13.0 (12.9-16.9) g/dL Hct 39.5 (37.5-50.1) % Plt Count 213 (140-400) K/mcL Neutrophils # 3.3 (1.6-8.9) K/mcL BMP 03/15/17 04:07 Sodium 135 L Potassium 4.6 H Chloride 99 Carbon Dioxide 25 BUN 28 H Creatinine 1.08 Glucose 149 H Calcium 8.7
[2017-03-15] MEDS: Albuterol 2.5 MG/3 ML NEBULIZER IH PRN ×2 (17:19→21:37)
[2017-03-15] MEDS: Lactobacillus 1 EACH CAP.SPRINK PO SCH (21:48)
[2017-03-15] MEDS: Azithromycin 500 MG in D5% in Water 250 ML IVPB SCH (21:48)
[2017-03-16] MEDS: Albuterol 2.5 MG/3 ML NEBULIZER IH PRN ×5 (02:07→20:44)
[2017-03-16 06:24] LABS: Basophils % 0.5 %; Eosinophils # 0.1 K/mcL (0.0-0.6); Eosinophils % 2.3 %; Hemoglobin 12.2 g/dL (12.9-16.9); Immature Granulocytes % 0.2 % (0-4); Mean Corpuscular Hemoglobin 30.3 pg (28.0-33.3); Mean Corpuscular Volume 91.8 fL (83.0-100.0); Mean Platelet Volume 9.5 fL (9.4-12.4); Monocytes # 0.5 K/mcL (0.0-1.3); Monocytes % 12.4 %; Neutrophils # 2.6 K/mcL (1.6-8.9); Platelet Count 179 K/mcL (140-400); Red Blood Count 4.03 M/mcL (4.19-5.50); Red Cell Distribution Width 14.3 % (11.5-14.5); Segmented Neutrophils % 60.6 %
[2017-03-16 06:45] LABS: BUN/Creatinine Ratio 20 (6-26); Blood Urea Nitrogen 15 mg/dL (8-26); Calcium 8.4 mg/dL (8.6-10.8); Carbon Dioxide 28 mEq/L (19-29); Chloride 105 mEq/L (98-109); Glucose 95 mg/dL (70-99); Osmolality,Calculated 291 (280-300); Potassium 4.1 mEq/L (3.5-4.5); Sodium 140 mEq/L (136-145); eGFR For African Americans > 60 (> 60); eGFR For Non-African Americans > 60 (> 60)
[2017-03-16 07:15] LABS: Anisocytosis 1+ (Not Present)
[2017-03-16 07:16] LABS: Hypochromasia Present (Not Present); Platelet Estimate Normal (Normal); Toxic Granulation Present (Not Present)
[2017-03-16] MEDS: Fluticasone Propionate Nasal 50 MCG/SPRAY BOTTLE NS SCH (08:58)
[2017-03-16] MEDS: Isosorbide MONOnitrate (24 HR) 30 MG TAB.ER.24H PO SCH (09:00)
[2017-03-16] MEDS: Ranolazine 500 MG TAB.ER.12H PO SCH ×2 (09:00→20:25)
[2017-03-16] MEDS: Acetaminophen 325 MG TABLET PO PRN (09:00)
[2017-03-16] MEDS: Lactobacillus 1 EACH CAP.SPRINK PO SCH ×2 (09:00→20:25)
[2017-03-16] MEDS: Metoprolol XL (24 HR) Succ 50 MG TAB.ER.24H PO SCH (09:00)
[2017-03-16] MEDS: DALIRESP 500 MCG PO SCH (09:01)
[2017-03-16] MEDS ORDERED: *HR* HYDROcodone/Acet 5/325 mg TABLET PO PRN (09:37)
--- NOTE | 2017-03-16 09:41 | Internal Med Progress Note ---
Date of Encounter: 03/16/17 Time of Encounter: 09:30 - Assessment and plan (1) Acute exacerbation of chronic obstructive airways disease Current Visit: No Status: Acute Assessment and plan: March 16. Continue duo nebs and Zithromax. Will discontinue Rocephin to avoid worsening diarrhea. Anticipate discharge home tomorrow if stable. (2) ASHD (arteriosclerotic heart disease) Current Visit: No Status: Acute Assessment and plan: March 16. Continue Toprol and Imdur and Ranexa (3) HTN (hypertension) Current Visit: No Status: Chronic Assessment and plan: March 16. Continue Toprol and lisinopril Qualifiers: Hypertension type: essential hypertension Qualified Code(s): I10 - Essential (primary) hypertension - Subjective Interval history: March 16. He states he does not feel improved. He reports having a headache and some diarrhea. - Constitutional Vitals: Temp Pulse Resp BP Pulse Ox 98.7 F 75 16 108/66 95 03/16/17 05:35 03/16/17 05:35 03/16/17 05:35 03/16/17 05:35 03/16/17 05:35 Exam: He is lying in bed and appears in mild discomfort. His conversation is appropriate. I reviewed his medications and lab results. Internal Medicine: Result - Labs CBC & Chem 7: 03/16/17 06:16 03/16/17 06:16 Labs: Short CBC 03/16/17 Range/Units 06:16 WBC 4.3 (4.3-11.1) K/mcL Hgb 12.2 L (12.9-16.9) g/dL Hct 37.0 L (37.5-50.1) % Plt Count 179 (140-400) K/mcL Neutrophils # 2.6 (1.6-8.9) K/mcL BMP 03/16/17 06:16 Sodium 140 Potassium 4.1 Chloride 105 Carbon Dioxide 28 BUN 15 D Creatinine 0.75 Glucose 95 Calcium 8.4 L - ABG Interpretation ABG results: PT/INR, D-dimer PT 12.9 Seconds (9.4-12.1) H 03/15/17 04:07 Consult Discharge Plan - Plan Referrals: Chavez De Oliveira DO [Primary Care Provider] - 1 week
[2017-03-16] MEDS: Budesonide/Formoterol 160/4.5 MDI IH SCH ×2 (11:05→20:44)
[2017-03-16] MEDS: Azithromycin 500 MG in D5% in Water 250 ML IVPB SCH (22:10)
[2017-03-17] MEDS: Albuterol 2.5 MG/3 ML NEBULIZER IH PRN ×2 (02:31→08:38)
[2017-03-17] MEDS: Budesonide/Formoterol 160/4.5 MDI IH SCH (08:25)
[2017-03-17] MEDS: Lactobacillus 1 EACH CAP.SPRINK PO SCH (09:46)
[2017-03-17] MEDS: DALIRESP 500 MCG PO SCH (09:47)
[2017-03-17] MEDS: Fluticasone Propionate Nasal 50 MCG/SPRAY BOTTLE NS SCH (09:47)
[2017-03-17] MEDS: Ranolazine 500 MG TAB.ER.12H PO SCH (09:47)
[2017-03-17] MEDS: Isosorbide MONOnitrate (24 HR) 30 MG TAB.ER.24H PO SCH (09:47)
[2017-03-17] MEDS: Metoprolol XL (24 HR) Succ 50 MG TAB.ER.24H PO SCH (09:48)
[2017-03-17 10:23] VITALS: BP 93/56
--- NOTE | 2017-03-17 13:22 | Discharge Summary ---
Date of Encounter: 03/17/17 Time of Encounter: 13:10 - Discharge Diagnosis (1) Acute exacerbation of chronic obstructive airways disease Priority: Primary Status: Acute (2) ASHD (arteriosclerotic heart disease) Priority: Secondary Status: Acute (3) HTN (hypertension) Priority: Secondary Status: Chronic Qualifiers: Hypertension type: essential hypertension Qualified Code(s): I10 - Essential (primary) hypertension - Discharge Medications Prescriptions: Azithromycin [Zithromax] 250 mg PO DAILY #2 tablet Lactobacillus [Culturelle] 1 each PO BID #4 cap.sprink predniSONE [PredniSONE] 10 mg PO BIDWM #4 tablet Home Medications: Montelukast [Singulair] 10 mg PO HS 12/07/14 [History] Budesonide/Formoterol 160/4.5 [Symbicort 160/4.5] 2 puff IH BID 09/16/16 [ History] Mometasone Furoate [Nasonex] 17 gm NS DAILY 09/16/16 [History] Roflumilast [Daliresp] 500 mcg PO DAILY 09/16/16 [History] Lisinopril 2.5 mg PO DAILY #30 tablet 09/22/16 [Rx] Albuterol Sulfate [Proair Respiclick] 90 mcg IH DAILY 10/27/16 [History] Atorvastatin [Lipitor] 40 mg PO HS 10/27/16 [History] Metoprolol XL (24 HR) Succ [Toprol Xl] 50 mg PO DAILY #30 tab.er.24h 10/27/16 [ Rx] Nitroglycerin [Nitrostat] 0.4 mg SL DAILY PRN 10/27/16 [History] Ranolazine [Ranexa] 500 mg PO BID #60 tab.er.12h 10/27/16 [Rx] Clopidogrel [Plavix] 03/14/17 [History] Isosorbide MONOnitrate (24 HR) [Imdur] 30 mg PO DAILY 03/14/17 [History] Azithromycin [Zithromax] 250 mg PO DAILY #2 tablet 03/17/17 [Rx] Ipratropium/Albuterol Neb [Duoneb] 3 ml IH Q6HR PRN #0 03/17/17 [Rx] Lactobacillus [Culturelle] 1 each PO BID #4 cap.sprink 03/17/17 [Rx] predniSONE [PredniSONE] 10 mg PO BIDWM #4 tablet 03/17/17 [Rx] Allergies/Adverse Reactions: 3 Allergy/AdvReac Type Severity Reaction Status Date / Time Peanuts Allergy Anaphylaxis Uncoded 03/14/17 19:59 Date of admission: 03/14/17 22:12 Primary care physician: Chavez De Oliveira DO - Patient Status Disposition: Home, Self-Care Condition: Good Overall status at discharge: patient is progressing back to baseline - Discharge Instructions Follow Up With: Chavez De Oliveira DO [Primary Care Provider] - 1 week - Diet and Activity Activity: resume usual activities as tolerated, wear oxygen at all times Diet: advance to your usual diet Hospital course: Mr. Rizo is a 66 year old male who came to the emergency room stating he had increase in cough with dyspnea onset March 12. He reports the cough is productive of brown mucus. He denies hemoptysis. Reports running a low-grade fever at home. Evaluated emergency room and felt to have exacerbation of COPD and was admitted to [facility] for ongoing care needs. Initial orders were written by the emergency room physician. I saw him on March 15 and performed the history and physical. He was started on Rocephin and Zithromax. Symbicort Flonase and Singulair were continued. He had gradual improvement during his hospital stay. He remained afebrile the last 24 hours of hospitalization. WBC remained normal and no left shift was seen on differential on March 16. Renal function improved with creatinine decreasing to 0.75 on 03/16/2017. On March 17 I felt he was stable for discharge home. He will follow with his PCP Dr. De Oliveira within 1 week. He will continue with antibiotic, prednisone, and probiotic for 2 additional days after discharge. - Time Spent with Patient Total time spent providing and/or coordinating discharge services: - Constitutional Vitals: Temp Pulse Resp BP Pulse Ox 97.6 F 69 20 93/56 97 03/17/17 10:21 03/17/17 10:21 03/17/17 10:21 03/17/17 10:21 03/17/17 10:21
== END 2017-03-17 14:20 | disposition home or self-care (01) ==
LOC: EMEROOPIK 19:39 → INPPIK 19:39
PROVIDERS: ADMIT Internal Medicine; ATTEND Internal Medicine

== ENCOUNTER 2017-11-09 15:19 | Observation (INO) ==
[2017-11-09] MEDS ORDERED: methylPREDNISolone 125 MG/2 ML VIAL IVP ONE (15:37)
[2017-11-09] MEDS ORDERED: 0.9 % Sodium Chloride 1,000 ML IVC ONE (15:37)
[2017-11-09] MEDS ORDERED: Ipratropium/Albuterol Neb 3 ML IH ONE (15:37)
--- NOTE | 2017-11-09 15:44 | Emergency Department Note ---
Disposition Clinical Impression: Acute exacerbation of chronic obstructive airways disease Disposition: Admitted As Inpatient Condition: Fair Referrals: Chavez De Oliveira DO [Primary Care Provider] - Forms: ED Satisfaction Letter Time of Disposition: 17:10 SOB HPI - General Chief Complaint: ED Shortness of Breath/Dyspnea Stated Complaint: sob Time Seen by Provider: 11/09/17 15:29 Source: patient, EMS Mode of arrival: EMS Limitations: no limitations Nursing Notes Reviewed: Yes Vital Signs Reviewed: Yes - History of Present Illness Pt Subjective Complaint: shortness of breath, cough Onset (ago): day(s) (10 days) Severity: severe Consistency/Duration: constant, gradually worsening Improves with: nothing Worsens with: exertion Known history of: COPD Associated symptoms: Reports: wheezing, sputum production (Yellow). Denies: chest pain, fever Treatment prior to arrival: oxygen, bronchodilator, other (Patient has been on Levaquin and prednisone for a week) Cough present: Yes Cough Description: Productive Cough Frequency: Persistent Sputum Amount: Moderate Sputum Color: Yellow - Related Data Home oxygen amount: 2 liters Home Medications Medication Instructions Recorded Confirmed Montelukast [Singulair] 10 mg PO HS 12/07/14 11/09/17 Budesonide/Formoterol 160/4.5 2 puff IH BID 09/16/16 11/09/17 [Symbicort 160/4.5] Roflumilast [Daliresp] 500 mcg PO DAILY 09/16/16 11/09/17 Albuterol Sulfate [Proair 90 mcg IH DAILY 10/27/16 11/09/17 Respiclick] Clopidogrel [Plavix] 75 mg PO QAM 03/14/17 11/09/17 Isosorbide MONOnitrate (24 HR) 60 mg PO DAILY 03/14/17 11/09/17 [Imdur] Metoprolol XL (24 HR) Succ [Toprol 25 mg PO DAILY 05/13/17 11/09/17 Xl] Simvastatin [Zocor] 80 mg PO HS 05/13/17 11/09/17 Budesonide/Formoterol 160/4.5 1 puff IH BIDR 11/09/17 11/09/17 [Symbicort 160/4.5] predniSONE [PredniSONE] 5 mg PO DAILY 11/09/17 11/09/17 Previous Rx's Medication Instructions Recorded Lisinopril 2.5 mg PO DAILY #30 tablet 09/22/16 Allergies Allergy/AdvReac Type Severity Reaction Status Date / Time Peanuts Allergy Anaphylaxis Uncoded 03/14/17 19:59 All systems ED: reviewed and negative except as stated. Constitutional: Denies: fever, chills ENT ED: Denies: ear pain, throat pain, congestion Cardiovascular: Denies: chest pain, palpitations Respiratory: Reports: cough, dyspnea, wheezes Gastrointestinal: Denies: abdominal pain, vomiting, diarrhea Integumentary: Denies: rash Neurological: Denies: headache Past Medical History - Past Medical History Attestation: Yes The following information was validated with the patient. Source: patient, old records reviewed, nursing notes reviewed Medical history: Reports: arthritis, asthma, CHF, COPD, coronary artery disease , CVA, hyperlipidemia, hypertension, myocardial infarction Surgical history: Reports: angioplasty/stent, coronary bypass (CABG), herniorrhaphy Psychiatric history: Reports: no psych history - Social History Smoking Status: Former smoker Smokeless Tobacco Status: No Alcohol use: Reports: rarely Drug use: Reports: none Physical Exam - General Limitations: no limitations General appearance: alert, other (Frequent cough and audible wheezing) - Head Head exam: atraumatic, normocephalic, normal inspection - Eye Eye exam: Present: normal appearance, PERRL, EOMI. Absent: scleral icterus, conjunctival injection - ENT ENT exam: normal exam, normal oropharynx, mucous membranes moist, normal external ear exam - Neck Neck exam: Present: normal inspection, full ROM, trachea midline. Absent: meningismus - Chest Chest inspection: Present: normal inspection, symmetric chest wall rise. Absent : tenderness - Respiratory Respiratory exam: Present: wheezes (Diffuse and bilateral) - Cardiovascular Cardiovascular exam: Present: regular rate, normal rhythm, normal heart sounds - Abdominal Exam Abdominal exam: Present: soft, Non-Tender, normal bowel sounds - Extremities Exam Extremities exam: Present: normal inspection. Absent: pedal edema - Neurological Exam Neurological exam: Present: alert, oriented X3 - Psychiatric Psychiatric exam: Present: normal affect, normal mood - Skin Skin exam: Present: warm, dry. Absent: rash Course Course Narrative: Patient presents with cough is productive of yellow sputum and he is short of breath and wheezing. It severe enough that is limiting his function at home. Even with oxygen on he cannot walk from one room to the next at home without decompensation. All of this despite having already been on antibiotics and steroids for a week for a diagnosis of bronchitis. This represents an outpatient failure. The patient will need to be admitted to the hospital. I am getting him doing nebs and IV steroids now. We will look at the chest x-ray to see if there is a pneumonia or other problem. - Reevaluation(s) Reevaluation #1: Labs and x-rays and EKGs are okay. Patient still needs to be admitted because he is failing outpatient treatment. I spoke with the hospitalist who recommended Rocephin and Zithromax and steroids and aerosol treatments inpatient. Time: 17:09 - Consultations Consultation #1: Dr. Hardy, hospitalist - I discussed the case with the hospitalist. He is accepted the patient for admission to the hospital has given orders. Time: 17:10 Vital Signs Temperature 99.3 F 11/09/17 15:21 Pulse Rate 85 11/09/17 15:21 Respiratory Rate 18 11/09/17 15:21 Blood Pressure 133/81 11/09/17 15:21 O2 Sat by Pulse Oximetry 96 11/09/17 15:21 Temperature 99.3 F 11/09/17 15:21 Pulse Rate 88 11/09/17 16:16 Respiratory Rate 18 11/09/17 16:57 Blood Pressure 136/71 11/09/17 16:57 O2 Sat by Pulse Oximetry 95 11/09/17 16:57 Oxygen Delivery Oxygen Delivery Room Air Shortness of Breath/Dyspnea - Medical Records Medical records reviewed: Yes I reviewed the patient's medical records. - Lab Data Lab results reviewed: Yes I reviewed the patient's lab results. Result diagrams: 11/09/17 15:56 11/09/17 15:56 Lab Results 11/09/17 11/09/17 11/09/17 Range/Units 15:56 15:56 15:56 WBC 10.9 (4.3-11.1) K/mcL RBC 4.84 (4.19-5.50) M/mcL Hgb 14.9 (12.9-16.9) g/dL Hct 45.5 (37.5-50.1) % MCV 94.0 (83.0-100.0) fL MCH 30.8 (28.0-33.3) pg MCHC 32.7 (31.6-35.5) g/dL RDW 13.2 (11.5-14.5) % Plt Count 262 (140-400) K/mcL MPV 9.9 (9.4-12.4) fL Immature Gran % 0.4 (0-4) % Seg Neutrophils % 83.2 % Lymphocytes % 7.8 % Monocytes % 5.4 % Eosinophils % 2.8 % Basophils % 0.4 % Neutrophils # 9.0 H (1.6-8.9) K/mcL Lymphocytes # 0.9 (0.6-4.6) K/mcL Monocytes # 0.6 (0.0-1.3) K/mcL Eosinophils # 0.3 (0.0-0.6) K/mcL Basophils # 0.0 (0.0-0.2) K/mcL Sodium 138 (136-145) mEq/L Potassium 4.2 (3.5-5.1) mEq/L Chloride 100 (98-107) mEq/L Carbon Dioxide 31 H (23-29) mEq/L BUN 14 (8-23) mg/dL Creatinine 0.82 (0.70-1.30) mg/dL Est GFR ( Amer) > 60 (> 60) Est GFR (Non-Af Amer) > 60 (> 60) BUN/Creatinine Ratio 17 (6-26) Glucose 128 H (70-105) mg/dL Calculated Osmolality 288 (280-300) Lactic Acid 0.7 (0.5-2.2) mmol/L Calcium 9.2 (8.6-10.3) mg/dL Troponin I < 0.03 (< 0.04) ng/mL B-Natriuretic Peptide (Less than 100) pg/mL 11/09/17 Range/Units 15:56 WBC (4.3-11.1) K/mcL RBC (4.19-5.50) M/mcL Hgb (12.9-16.9) g/dL Hct (37.5-50.1) % MCV (83.0-100.0) fL MCH (28.0-33.3) pg MCHC (31.6-35.5) g/dL RDW (11.5-14.5) % Plt Count (140-400) K/mcL MPV (9.4-12.4) fL Immature Gran % (0-4) % Seg Neutrophils % % Lymphocytes % % Monocytes % % Eosinophils % % Basophils % % Neutrophils # (1.6-8.9) K/mcL Lymphocytes # (0.6-4.6) K/mcL Monocytes # (0.0-1.3) K/mcL Eosinophils # (0.0-0.6) K/mcL Basophils # (0.0-0.2) K/mcL Sodium (136-145) mEq/L Potassium (3.5-5.1) mEq/L Chloride (98-107) mEq/L Carbon Dioxide (23-29) mEq/L BUN (8-23) mg/dL Creatinine (0.70-1.30) mg/dL Est GFR ( Amer) (> 60) Est GFR (Non-Af Amer) (> 60) BUN/Creatinine Ratio (6-26) Glucose (70-105) mg/dL Calculated Osmolality (280-300) Lactic Acid (0.5-2.2) mmol/L Calcium (8.6-10.3) mg/dL Troponin I (< 0.04) ng/mL B-Natriuretic Peptide 113 H (Less than 100) pg/mL - Radiology Data Radiology results reviewed: Yes I reviewed the patient's radiology results. - EKG Data EKG attestation: Yes I reviewed and interpreted this EKG. EKG results narrative: Twelve-lead EKG performed at 1530 4 PM and interpreted by ED physician shows sinus rhythm at a rate of 76. Normal axis. Good R-wave progression across precordium. There are nonspecific ST and T-wave abnormalities seen in 2 and 3 and F as well as the lateral precordial leads. These seem consistent with LVH. They are seen on multiple previous EKGs. I do not think these represent acute ischemic changes but are more likely LVH and chronic. Intervals are within normal limits. Repeat EKG performed at 1705 and interpreted by ED physician shows sinus rhythm at a rate of 89. Normal axis. Good hour progression across corneum. Left ventricular hypertrophy is obvious and ST-T wave abnormalities are consistent with LVH.
[2017-11-09 16:06] LABS: Basophils % 0.4 %; Eosinophils # 0.3 K/mcL (0.0-0.6); Eosinophils % 2.8 %; Hematocrit 45.5 % (37.5-50.1); Hemoglobin 14.9 g/dL (12.9-16.9); Immature Granulocytes % 0.4 % (0-4); Lymphocytes # 0.9 K/mcL (0.6-4.6); Lymphocytes % 7.8 %; Mean Corpuscular HGB Conc 32.7 g/dL (31.6-35.5); Mean Corpuscular Hemoglobin 30.8 pg (28.0-33.3); Mean Platelet Volume 9.9 fL (9.4-12.4); Monocytes # 0.6 K/mcL (0.0-1.3); Monocytes % 5.4 %; Platelet Count 262 K/mcL (140-400); Red Blood Count 4.84 M/mcL (4.19-5.50); Red Cell Distribution Width 13.2 % (11.5-14.5); Segmented Neutrophils % 83.2 %
[2017-11-09 16:22] LABS: BUN/Creatinine Ratio 17 (6-26); Blood Urea Nitrogen 14 mg/dL (8-23); Calcium 9.2 mg/dL (8.6-10.3); Carbon Dioxide 31 mEq/L (23-29); Chloride 100 mEq/L (98-107); Glucose 128 mg/dL (70-105); Osmolality,Calculated 288 (280-300); Potassium 4.2 mEq/L (3.5-5.1); Sodium 138 mEq/L (136-145); eGFR For Non-African Americans > 60 (> 60)
[2017-11-09 16:28] LABS: Troponin I < 0.03 ng/mL (< 0.04)
[2017-11-09] MEDS ORDERED: Azithromycin 500 MG in D5% in Water 250 ML IVPB ONE (17:07)
[2017-11-10] MEDS ORDERED: 0.9 % Sodium Chloride 1,000 ML IVC SCH (05:34)
[2017-11-10] MEDS ORDERED: MethylPREDNISolone 40 MG/ML VIAL IVP ONE (05:34)
[2017-11-10] MEDS ORDERED: Naloxone 0.4 MG/ML INJ IVP PRN (05:34)
[2017-11-10] MEDS: Budesonide/Formoterol 160/4.5 1 PUFF INH IH SCH ×2 (06:51→08:23)
[2017-11-10] MEDS: Ipratropium/Albuterol Neb 3 ML IH SCH ×3 (06:51→11:14)
[2017-11-10] MEDS ORDERED: methylPREDNISolone 125 MG/2 ML VIAL IVP SCH (08:27)
[2017-11-10] MEDS ORDERED: Metoprolol XL (24 HR) Succ 50 MG TAB.ER.24H PO SCH (09:00)
[2017-11-10] MEDS ORDERED: (Roflumilast [Daliresp] 500 MCG) PO SCH (09:00)
[2017-11-10] MEDS ORDERED: Isosorbide MONOnitrate (24 HR) 30 MG TAB.ER.24H PO SCH (09:00)
[2017-11-10 10:44] VITALS: BP 92/54
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
--- NOTE | 2017-11-10 14:53 | Discharge Summary ---
Date of Encounter: 11/10/17 Time of Encounter: 14:05 - Discharge Diagnosis (1) Acute exacerbation of chronic obstructive airways disease Priority: Primary Status: Acute (2) HTN (hypertension) Priority: Secondary Status: Chronic Qualifiers: Hypertension type: essential hypertension Qualified Code(s): I10 - Essential (primary) hypertension Hospital course: Mr. Rizo is a 67 year old male who came to emergency room stating he had increasing dyspnea the preceding 3 days. He had cough with minimal productivity of yellow sputum. There was no hemoptysis. He felt occasional cold sweats. He was evaluated in emergency room and was felt to have exacerbation of COPD. He was admitted to [facility] for ongoing care needs. Initial orders were written by the emergency room physician. I saw him on November 10 and performed a history and physical. By the time I saw him he stated his breathing was improved and he felt stable for discharge home. I offered him staying an additional day in the hospital but he declined. His vital signs had remained stable including being afebrile. He will continue with antibiotic and probiotic for 3 additional days at discharge. He has oxygen at home already. He will follow with his PCP Dr. De Oliveira within 1 week. 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 - Time Spent with Patient Total time spent providing and/or coordinating discharge services: - Discharge Medications Prescriptions: Cefuroxime PO [Ceftin] 500 mg PO Q12HR #6 tablet Azithromycin [Zithromax] 250 mg PO DAILY #3 tablet Lactobacillus [Culturelle] 1 each PO BID #6 cap.sprink predniSONE [PredniSONE] 10 mg PO BIDWM #6 tablet Home Medications: Montelukast [Singulair] 10 mg PO HS 12/07/14 [History] Budesonide/Formoterol 160/4.5 [Symbicort 160/4.5] 2 puff IH BID 09/16/16 [ History] Roflumilast [Daliresp] 500 mcg PO DAILY 09/16/16 [History] Lisinopril 2.5 mg PO DAILY #30 tablet 09/22/16 [Rx] Albuterol Sulfate [Proair Respiclick] 90 mcg IH DAILY 10/27/16 [History] Clopidogrel [Plavix] 75 mg PO QAM 03/14/17 [History] Isosorbide MONOnitrate (24 HR) [Imdur] 60 mg PO DAILY 03/14/17 [History] Metoprolol XL (24 HR) Succ [Toprol Xl] 25 mg PO DAILY 05/13/17 [History] Simvastatin [Zocor] 80 mg PO HS 05/13/17 [History] Budesonide/Formoterol 160/4.5 [Symbicort 160/4.5] 1 puff IH BIDR 11/09/17 [ History] predniSONE [PredniSONE] 5 mg PO DAILY 11/09/17 [History] Azithromycin [Zithromax] 250 mg PO DAILY #3 tablet 11/10/17 [Rx] Cefuroxime PO [Ceftin] 500 mg PO Q12HR #6 tablet 11/10/17 [Rx] Lactobacillus [Culturelle] 1 each PO BID #6 cap.sprink 11/10/17 [Rx] predniSONE [PredniSONE] 10 mg PO BIDWM #6 tablet 11/10/17 [Rx] Allergies/Adverse Reactions: 3 Allergy/AdvReac Type Severity Reaction Status Date / Time Peanuts Allergy Anaphylaxis Uncoded 03/14/17 19:59 Date of admission: 11/09/17 17:25 Primary care physician: Chavez De Oliveira DO - Constitutional Vitals: Temp Pulse Resp BP Pulse Ox 98.4 F 55 16 92/54 95 11/10/17 10:41 11/10/17 10:41 11/10/17 11:15 11/10/17 10:41 11/10/17 11:15 - Patient Status Disposition: Home, Self-Care Condition: Fair - Discharge Instructions Follow Up With: Chavez De Oliveira DO [Primary Care Provider] - 1 week - Diet and Activity Activity: resume usual activities as tolerated, wear oxygen at night Diet: advance to your usual diet - VTE Documentation of Mechanical Device: Graduated compression elastic hosiery
--- NOTE | 2017-11-13 21:15 | Electrocardiograph Report ---
[address] [address] Test Date: 2017-11-09 Pat Name: Deejay Rizo Department: [id number] Room: [facility] Gender: M [employer]: [id number] : 1950 Requested By: Benito Renee Order Number: [id number] Reading MD: Nishi Rivera Measurements Intervals [place] Rate: 89 P: 73 ME: 147 QRS: 68 QRSD: 98 T: -54 QT: 367 QTc: 414 Interpretive Statements SINUS RHYTHM POSSIBLE LEFT ATRIAL ENLARGEMENT LEFT VENTRICULAR HYPERTROPHY AND ST-T CHANGE Electronically Signed On 11-13-2017 21:14:17 EDT by Nishi Rivera
--- NOTE | 2017-11-13 21:15 | Electrocardiograph Report ---
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
== END 2017-11-10 15:30 | disposition home or self-care (01) ==
LOC: INPPIK 15:19 → EMEROOPIK 15:19 → INPPIK 19:05
PROVIDERS: ADMIT Internal Medicine; ATTEND Internal Medicine